=== PATIENT | male | born 1975 | race American Indian/Alaskan Native ===

== ENCOUNTER 2018-01-13 23:50 | Emergency (ER) | payer MEDICARE ==
--- NOTE | 2018-01-14 01:17 | Emergency Department Report ---
<FRANCYAMANDAIRENA C - Last Filed: 01/14/18 04:46> ED Lower Extremity HPI - General Chief Complaint: Extremity Injury, Lower Stated Complaint: LEFT LEG PAIN Time Seen by Provider: 01/14/18 01:05 - Related Data Allergies Allergy/AdvReac Type Severity Reaction Status Date / Time No Known Allergies Allergy Verified 01/14/18 05:44 ED Review of Systems ROS: Stated complaint: LEFT LEG PAIN Other details as noted in HPI ED Course Vital Signs 01/13/18 01/13/18 01/14/18 23:49 23:58 02:25 Temperature 97.6 F 97.6 F Pulse Rate 102 H 102 H Respiratory 20 18 Rate Blood Pressure 166/110 166/110 Blood Pressure [Right] O2 Sat by Pulse 98 98 Oximetry 01/14/18 01/14/18 03:19 05:36 Temperature 98 F Pulse Rate 84 Respiratory 18 18 Rate Blood Pressure Blood Pressure 162/103 [Right] O2 Sat by Pulse 99 Oximetry - Consultations Consultation #1: 01/14/18 04:46 Case d/w [facility] transfer service. Pt accepted by giacomo Kurtz. Requesting emergent transport to the ed within 1 hour. ED Lower Extremity MDM - Lab Data Result diagrams: 01/14/18 01:57 01/14/18 01:57 - Medical Decision Making Norma rossi discussed with [facility] transfer service in attempt to speak to orthopedics due to concern of compartment syndrome. She was told that patient can be managed by a general surgeon. Pt with general surgeon on-call Dr Barreto and he states that this should be managed by orthopedic surgeon. 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 These disposition issues were brought to my attention at 4:40 AM and therefore I recontact [facility] transfer service after speaking to patient. Patient has been accepted by Dr Kurtz orthopedic surgeon and [facility] with request to have patient presented to the ED within 1 hour. Patient transferred with emergent transport. Patient has pain and swelling to Area without tense compartment findings. Patient has an unusual mechanism of feeling a pop while he was walking followed by significant pain and swelling. Patient reports that he had compartment syndrome of the right arm in 2009 that happen after working out and then lifting carpet and feeling a popping sensation. Patient required fasciotomy at that time. Patient has good distal DP pulse and CT without contrast does not show any signs of ischemia but given patient's history I am unable to rule out compartment syndrome this time the patient was a specialist evaluation. Critical care attestation.: If time is entered above; I have spent that time in minutes in the direct care of this critically ill patient, excluding procedure time. ED Disposition Clinical Impression: Swelling of left lower extremity Disposition: [id number] ANOTHER TYPE [facility] Condition: Stable Referrals: PRIMARY CARE, [Primary Care Provider] - 3-5 Days <ANTONINOFIELDNORMAEl Vines - Last Filed: 01/14/18 07:30> ED Lower Extremity HPI - General Source: patient Mode of arrival: Ambulatory Limitations: No Limitations - History of Present Illness MD Complaint: leg injury ED Past Medical Hx - Past Medical History Previous Medical History?: Yes Additional medical history: compartment syndrome to right arm 2009 - Surgical History Past Surgical History?: Yes - Social History Smoking Status: Never Smoker Substance Use Type: None ED Physical Exam - General Limitations: No Limitations ED Lower Extremity MDM - Lab Data Result diagrams: 01/14/18 01:57 01/14/18 01:57 - Radiology Data Radiology results: report reviewed, image reviewed FINAL REPORT EXAM: CT LOWER EXTREMITY LT WO CON HISTORY: lower leg swellingc/o compartment syndrome TECHNIQUE: Routine axial imaging was obtained of the left lower extremity extending from just above the knee joint through the ankle without IV contrast with sagittal and coronal reconstructions. FINDINGS: There is reticulation of the subcutaneous fat around the calf suggesting mild edema. The calf musculature shows no evidence of diminished attenuation or fluid collections that would suggest myositis or ischemic changes. The bony structures are unremarkable. The knee and ankle joints do not show any acute changes. IMPRESSION: Very mild subcutaneous edema around the calf. No attenuation abnormalities of the calf musculature that would suggest ischemia or infection. No evidence of fluid within the fascial planes also. Transcribed By: RB Dictated By: GRADY LAST MD Electronically Authenticated By: GRADY LAST MD Signed Date/Time: 01/14/18236 DD/ 6 TD/TT: 01/14/18236 ED Disposition Is pt being admited?: No Does the pt Need Aspirin: No
[2018-01-14 02:17] LABS: Basophils # (Auto) 0.1 K/mm3 (0.0-0.1); Basophils % (Auto) 0.6 % (0.0-1.8); Eosinophils # (Auto) 0.3 K/mm3 (0.0-0.4); Eosinophils % (Auto) 2.8 % (0.0-4.3); Hematocrit 46.2 % (35.5-45.6); Hemoglobin 15.6 gm/dl (11.8-15.2); Lymphocytes # (Auto) 1.5 K/mm3 (1.2-5.4); Lymphocytes % (Auto) 15.9 % (13.4-35.0); Mean Corpuscular HGB Conc 34 % (32-34); Mean Corpuscular Hemoglobin 34 pg (28-32); Mean Corpuscular Volume 102 fl (84-94); Monocytes # (Auto) 0.9 K/mm3 (0.0-0.8); Monocytes % (Auto) 9.5 % (0.0-7.3); Platelet Count 179 K/mm3 (140-440); Red Blood Count 4.54 M/mm3 (3.65-5.03); Red Cell Distribution Width 13.5 % (13.2-15.2)
[2018-01-14] MEDS ORDERED: PERCOCET 5/325 PO ONE (02:22)
[2018-01-14 02:33] LABS: Bilirubin,Urine NEG (Negative); Blood,Urine NEG (Negative); Color,Urine Yellow (Yellow); Protein,Urine <15 mg/dL mg/dL (Negative); Urobilinogen,Urine < 2.0 mg/dL (<2.0); WBC,Urine < 1.0 /HPF (0.0-6.0)
[2018-01-14 02:34] LABS: Alanine Aminotransferase 19 units/L (7-56); Albumin 4.5 g/dL (3.9-5); BUN/Creatinine Ratio 12; Blood Urea Nitrogen 13 mg/dL (9-20); Calcium 9.5 mg/dL (8.4-10.2); Hemolysis Index 33
--- NOTE | 2018-01-14 02:42 | Cat Scan Report ---
FINAL REPORT EXAM: CT LOWER EXTREMITY LT WO CON HISTORY: lower leg swellingc/o compartment syndrome TECHNIQUE: Routine axial imaging was obtained of the left lower extremity extending from just above the knee joint through the ankle without IV contrast with sagittal and coronal reconstructions. FINDINGS: There is reticulation of the subcutaneous fat around the calf suggesting mild edema. The calf musculature shows no evidence of diminished attenuation or fluid collections that would suggest myositis or ischemic changes. The bony structures are unremarkable. The knee and ankle joints do not show any acute changes. IMPRESSION: Very mild subcutaneous edema around the calf. No attenuation abnormalities of the calf musculature that would suggest ischemia or infection. No evidence of fluid within the fascial planes also.
[2018-01-14] MEDS ORDERED: NACL 0.9% 1000 ML 2,000 ML IV ONE (02:57)
[2018-01-14 03:21] VITALS: BP 162/103
[2018-01-14] MEDS ORDERED: MOTRIN PO ONE ×2 (05:35→05:36)
== END 2018-01-14 05:50 | disposition other institution (70) ==
LOC: ED 23:50
DX: R22.42 Localized swelling, mass and lump, left lower limb (principal); M79.A11 Nontraumatic compartment syndrome of right upper extremity
CPT/HCPCS: 36415; 73700; 80053; 81001; 82550; 85025; 99285; J7030